=== PATIENT | female | born 1965 | race African-American/Black ===

== ENCOUNTER 2017-12-20 09:08 | Emergency (ER) | payer MEDICAID ==
[~2017-12-20] VITALS: Ht 162.6 cm; Wt 85.0 kg
[2017-12-20] MEDS ORDERED: METF-815 PO (09:14)
[2017-12-20] MEDS ORDERED: ACETAMINOPHEN 325MG TABLET PO ONE (11:00)
[2017-12-20 12:31] VITALS: BP 134/81
== END 2017-12-20 12:33 | disposition home or self-care (01) ==
LOC: ER 09:08
DX: S10.83XA Contusion of other specified part of neck, initial encounter (principal); S20.212A Contusion of left front wall of thorax, initial encounter; E11.9 Type 2 diabetes mellitus without complications; V49.49XA Driver injured in collision with other motor vehicles in traffic accident, initial encounter; Y93.89 Activity, other specified; Y92.89 Other specified places as the place of occurrence of the external cause; Y99.8 Other external cause status; Z88.9 Allergy status to unspecified drugs, medicaments and biological substances; Z88.6 Allergy status to analgesic agent; Z91.041 Radiographic dye allergy status
CPT/HCPCS: 71046; 93005; 99284